=== PATIENT | male | born 1990 | race Caucasian/White ===

== ENCOUNTER 2019-03-11 23:56 | Emergency (ER) | payer SELFPAY ==
[2019-03-12 00:38] VITALS: BP 138/93
== END 2019-03-12 01:00 | disposition left against medical advice (07) ==
LOC: ER 23:56
DX: Z53.21 Procedure and treatment not carried out due to patient leaving prior to being seen by health care provider (principal)

== ENCOUNTER 2020-09-11 02:18 | Emergency (ER) | payer SELFPAY ==
[2020-09-11] MEDS ORDERED: HYDROCODONE/ACETAMINOPHEN 5-325 MG (6 TAB/ER DISP) PO PRN (04:16)
[2020-09-11] MEDS ORDERED: AMOXICILLIN TR/POT CLAVULANATE 875-125 MG TAB PO ONE (04:17)
--- NOTE | 2020-09-11 04:19 | ER Document Report ---
HPI - HPI Time Seen by Provider: 09/11/20 04:03 Pain Level: 2 Context: Patient is a 29-year-old male who comes to the emergency department for chief complaint of dental pain and pain in his upper jaw at the lip area that feels like it goes up into his nose. He states he has intermittent nasal congestion and at other times it feels very dry. He denies discolored nasal discharge, just some clear discharge. He denies fever. He denies headache, sore throat, neck pain. He denies any daily medications or diagnosed past medical history except dental problems. He states he plans on having all of his teeth extracted. - CONSTITUTIONAL Constitutional: DENIES: Fever, Chills - EENT EENT: DENIES: Sore Throat, Ear Pain, Eye problems - NEURO Neurology: DENIES: Headache, Weakness, Vision blurred, Dizzinesss / Vertigo - CARDIOVASCULAR Cardiovascular: DENIES: Chest pain - RESPIRATORY Respiratory: DENIES: Trouble Breathing, Coughing - GASTROINTESTINAL Gastrointestinal: DENIES: Abdominal Pain, Black / Bloody Stools - URINARY Urinary: DENIES: Dysuria, Urgency, Frequency - REPRODUCTIVE Reproductive: DENIES: : - MUSCULOSKELETAL Musculoskeletal: DENIES: Extremity pain Past Medical History - General Information source: Patient - Social History Smoking Status: Current Every Day Smoker Chew tobacco use (# tins/day): No Frequency of alcohol use: None Drug Abuse: Marijuana Lives with: Family Family History: Reviewed & Not Pertinent Patient has homicidal ideation: No Pulmonary Medical History: Reports: Hx Asthma Psychiatric Medical History: Reports: Hx Attention Deficit Hyperactivity Disorder - Immunizations Hx Diphtheria, Pertussis, Tetanus Vaccination: Yes - 2009 Hx Pneumococcal Vaccination: 08/26/00 Vertical Provider Document - CONSTITUTIONAL General Appearance: WD/WN. negative: No Apparent Distress - Patient appears mildly uncomfortable but is not in severe distress - INFECTION CONTROL TRAVEL OUTSIDE OF THE [place] IN LAST 30 DAYS: No - HEENT HEENT: Atraumatic, Normocephalic, PERRLA. negative: Normal ENT Exam - Tenderness along the lower maxillary sinuses, sinus congestion, otherwise unremarkable exam including oropharyngeal exam except dental exam, see below., Pharyngeal Erythema Mouth Diagram: 1 - Widespread dental caries but in the specific location there is erythema along the gumline with tenderness. No induration, fluctuance, or other concerning findings noted - NECK Neck: Normal Inspection. negative: Lymphadenopathy-Left, Lymphadenopathy-Right - RESPIRATORY Respiratory: Breath Sounds Normal - CARDIOVASCULAR Cardiovascular: Regular Rate, Regular Rhythm - GI/ABDOMEN Gastrointestinal: Abdomen Soft, Abdomen Non-Tender - BACK Back: Normal Inspection - MUSCULOSKELETAL/EXTREMETIES Musculoskeletal/Extremeties: MAEW, FROM, Non-Tender - NEURO Level of Consciousness: Awake, Alert, Appropriate Motor/Sensory: No Motor Deficit, No Sensory Deficit - DERM Integumentary: Warm, Dry, No Rash Course - Re-evaluation Re-evalutation: Patient with sinus tenderness with pain in the teeth. I suspect he has sinusitis. He does have some nasal congestion. This has been worsening over time. Patient also has dental infection in the left lower molar area. No a bscesses noted, normal submandibular area. No fever. No other complaints. Patient be treated for dental infection and sinus infection, patient referred to dentist but also reports having dental follow-up, discussed return precautions. Patient states appreciation and agreement. - Vital Signs Vital signs: Temp Pulse Resp BP Pulse Ox 97.8 F 82 16 138/94 H 99 09/11/20 02:35 09/11/20 02:25 09/11/20 02:25 09/11/20 02:25 09/11/20 02:25 - Laboratory Results Critical Laboratory Results Reviewed: No Critical Results - Radiology Results Critical Radiology Results Reviewed: No Critical Results Discharge - Discharge Clinical Impression: Sinus pain, Pain, dental Condition: Stable Disposition: HOME, SELF-CARE Additional Instructions: Your evaluation is consistent with both a dental and a sinus infection. Take the antibiotics as prescribed to completion. I recommend taking an [id number] probiotic while taking the Augmentin to avoid diarrhea. You can also take 1000 mg of Tylenol and 600 mg of ibuprofen every 6 hours together if needed for pain. It is important that you follow-up with a dentist for additional management of this will continue to happen. Return if you worsen including swelling of the face, developing fever, or any other concerning or worsening symptoms. [facility] [address], [address] Prescriptions: Amoxicillin/Potassium Clav [Augmentin 875-125 Tablet] 1 tab PO BID 7 Days #14 tablet Referrals: INGRID PRATT,TANIYA Reveles MD [NO LOCAL MD] - Follow up as needed
[2020-09-11 05:01] VITALS: BP 129/78
== END 2020-09-11 04:45 | disposition home or self-care (01) ==
LOC: ER 02:18
DX: K04.7 Periapical abscess without sinus (principal); K02.9 Dental caries, unspecified; J34.89 Other specified disorders of nose and nasal sinuses; R09.81 Nasal congestion; F17.200 Nicotine dependence, unspecified, uncomplicated; F12.10 Cannabis abuse, uncomplicated; J45.909 Unspecified asthma, uncomplicated
CPT/HCPCS: 99283; J3490